=== PATIENT | male | born 2000 | race Caucasian/White ===

== ENCOUNTER 2024-06-14 10:18 | Emergency (ER) | payer MEDICAID, OTHER ==
[~2024-06-14] VITALS: Ht 175.3 cm; Wt 65.0 kg
[2024-06-14 10:27] VITALS: O2SAT 100
[2024-06-14] MEDS ORDERED: KETOROLAC 30MG/ML VIAL IM ONE (10:45)
[2024-06-14] MEDS ORDERED: ACETAMINOPHEN 325MG TABLET PO ONE (10:45)
[2024-06-14] MEDS: ACETAMINOPHEN 325MG TABLET PO NR (12:26)
[2024-06-14] MEDS: KETOROLAC 30MG/ML VIAL IM NR (12:27)
[2024-06-14] MEDS ORDERED: NAPR-681 MT (12:27)
[2024-06-14 12:42] VITALS: BP 145/96; PULSE 56; RESP 18; TEMP 36.72516; O2SAT 100
== END 2024-06-14 12:49 | disposition home or self-care (01) ==
LOC: ER 10:18
DX: R07.81 Pleurodynia (principal); Z79.1 Long term (current) use of non-steroidal anti-inflammatories (NSAID)
CPT/HCPCS: 99283; 71101; 96372; J1885